=== PATIENT | female | born 1960 | race Caucasian/White ===

== ENCOUNTER 2018-12-15 14:06 | Emergency (ER) | payer BC, OTHER ==
[2018-12-15 14:30] VITALS: BP 157/88
--- NOTE | 2018-12-15 15:28 | UC ---
Abdominal Pain Female HPI - HPI Summary HPI Summary: Patient is a 58 y/o female Who presents to the urgent care with a chief complaint of abdominal pain. Patient also reports nausea and vomiting and fever. She reports that she has history of esophagitis however the pain is different from her previous esophagitis that time. Patient denies any diarrhea or constipation. Patient denies any chest pain shortness of breath or palpitations. - History of Current Complaint Chief Complaint: UCGI Stated Complaint: VOMITING Time Seen by Provider: 12/15/18 14:48 Hx Obtained From: Patient ?: No Onset/Duration: Sudden Onset Timing: Constant Severity Currently: Moderate Pain Intensity: 8 Location: Discrete At: RUQ, Discrete At: LUQ, Epigastric Radiates: No Character: Dull Aggravating Factor(s): Nothing Alleviating Factor(s): Nothing Associated Signs and Symptoms: Positive: Nausea - Risk Factors Ectopic Risk Factor: Negative Allergies/Adverse Reactions: Allergies Allergy/AdvReac Type Severity Reaction Status Date / Time environmental Allergy Wheezing Uncoded 12/15/18 14:26 OPIODS AdvReac Severe Vomiting Uncoded 12/15/18 14:26 Home Medications: Home Medications Famotidine [Pepcid] 40 mg PO BID 12/15/18 [History Confirmed 12/15/18] Gabapentin 300 mg PO QPM 12/15/18 [History Confirmed 12/15/18] Montelukast Sodium TAB* [Singulair 10 MG TAB*] 1 tab PO DAILY 12/15/18 [History Confirmed 12/15/18] Multivitamin [Multivitamins] 1 cap PO DAILY 12/15/18 [History Confirmed 12/15/18 ] Raloxifene HCl [Evista] 1 tab PO DAILY 12/15/18 [History Confirmed 12/15/18] Thyroid,Pork [Reading Thyroid] 30 mg PO BID 12/15/18 [History Confirmed 12/15/18] PMH/Surg Hx/FS Hx/Imm Hx Previously Healthy: Yes Other GI/ History: Esophagitis - Surgical History Surgical History: Yes Surgery Procedure, Year, and Place: NECK SUREGERY A CHILD(MUSCULAR-LIGAMENTS ) AGE 3 AND 5, TONSILECTOMY, UTERINE FIBROIDS, RT BREAST LUMPECTOMY WITH BIOPSY MARKERS, OOPHERECTOMY; Lt BREAST BIOPSY - W/ MARKERS PLACED. Lt KNEE - TOTAL KNEE REPLACEMENT - Family History Known Family History: Positive: None - Social History Alcohol Use: Occasionally Substance Use Type: None Smoking Status (MU): Never Smoked Tobacco Have You Smoked in the Last Year: No Review of Systems All Other Systems Reviewed And Are Negative: Yes Constitutional: Positive: Negative Skin: Positive: Negative Eyes: Positive: Negative Respiratory: Positive: Negative Cardiovascular: Positive: Negative Gastrointestinal: Positive: Abdominal Pain, Nausea Genitourinary: Positive: Negative Motor: Positive: Negative Neurovascular: Positive: Negative Musculoskeletal: Positive: Negative Neurological: Positive: Negative Psychological: Positive: Negative Is Patient Immunocompromised?: No Physical Exam - Summary Physical Exam Summary: VITAL SIGNS: Reviewed. GENERAL: Patient is a well developed and nourished female who is lying comfortable in the stretcher. Patient is not in any acute respiratory distress. HEAD AND FACE: Normocephalic and atraumatic. EYES: PERRLA, EOMI x 2, No injected conjunctiva. EARS: Hearing grossly intact. Ear canals and tympanic membranes are WNL. MOUTH: Oropharynx within normal limits. NECK: Supple, trachea is midline, no adenopathy, no JVD. CHEST: Symmetric, no tenderness at palpation LUNGS: Clear to auscultation bilaterally. No wheezing or crackles. CVS: RRR, S1 and S2 present, no murmurs or gallops appreciated. ABDOMEN: Soft, positive tenderness in the RUQ, epigastric and LUQ pain. No signs of distention. Positive bowel sounds. No rebound no guarding, and no masses palpated. No abdominal bruit or pulsations. EXTREMITIES: FROM in all major joints, no edema, no cyanosis or clubbing. NEURO: Alert and oriented x 3. No acute neurological deficits. Speech is normal. SKIN: Dry and warm Vital Signs: Initial Vital Signs Temp 99.9 F 12/15/18 14:22 Pulse 96 12/15/18 14:22 Resp 18 12/15/18 14:22 BP 157/88 12/15/18 14:22 Pulse Ox 97 12/15/18 14:22 Abd Pain Female Course/Dx - Course Course Of Treatment: During the physical exam the patient has a right upper quadrant, epigastric and left upper quadrant pain. I believe that the patient may need for work and I believe rehydration, antinausea medications and pain medications. Therefore I recommended for the patient to go to the ER for further workup and management. The patient understands and agrees. The patient requested something for pain and that a narcotic. She requested Toradol and something for nausea therefore she was given Zofran sublingual and she will call to the emergency department. Patient is hemodynamically stable alert and oriented 3. - Differential Dx/Diagnosis Provider Diagnosis: Upper abdominal pain Discharge - Sign-Out/Discharge Documenting (check all that apply): Patient Departure All imaging exams completed and their final reports reviewed: No - Discharge Plan Condition: Stable Disposition: HOME-RECOMMEND TO ED Patient Education Materials: Acute Abdominal Pain (ED) Referrals: Peggy Guerin MD [Primary Care Provider] - Additional Instructions: Patient recommended to go to the ED for further work up and management. - Billing Disposition and Condition Condition: STABLE Disposition: Home-Recommend to ED
[2018-12-15] MEDS ORDERED: Ketorolac INJ* 30 MG/ML 1 ML VIAL IM ONE (15:35)
[2018-12-15] MEDS ORDERED: Ondansetron ODT TAB* 4 MG SL PRN (15:36)
[2018-12-15] MEDS ORDERED: Ondansetron ODT TAB* 4 MG SL ONE (15:41)
--- NOTE | 2018-12-16 10:44 | UC ---
- Progress Note Progress Note: No x-rays were ordered Course/Dx - Diagnoses Provider Diagnoses: Upper abdominal pain Discharge - Sign-Out/Discharge Documenting (check all that apply): Patient Departure All imaging exams completed and their final reports reviewed: No Studies - Discharge Plan Condition: Stable Disposition: HOME-RECOMMEND TO ED Patient Education Materials: Acute Abdominal Pain (ED) Referrals: Peggy Guerin MD [Primary Care Provider] - Additional Instructions: Patient recommended to go to the ED for further work up and management. - Billing Disposition and Condition Condition: STABLE Disposition: Home-Recommend to ED
== END 2018-12-15 15:45 | disposition home health service (06) ==
LOC: UCEAST 14:06
DX: R10.11 Right upper quadrant pain (principal); R10.12 Left upper quadrant pain; R10.13 Epigastric pain; R11.2 Nausea with vomiting, unspecified; R50.9 Fever, unspecified; K20.9 Esophagitis, unspecified; Z96.652 Presence of left artificial knee joint; Z88.5 Allergy status to narcotic agent
CPT/HCPCS: 96372; 99212; A9270-GY; G0463; J1885

== ENCOUNTER 2018-12-15 16:09 | Inpatient (IN) | payer OTHER ==
[2018-12-15] MEDS ORDERED: NS 0.9% 1000 ML** 1,000 ML IV ONE ×2 (16:38→20:04)
[2018-12-15] MEDS ORDERED: Acetaminophen TAB* 325 MG PO ONE (16:39)
[2018-12-15 18:35] LABS: INR 1.15 (0.82-1.09)
[2018-12-15 18:39] LABS: Albumin 4.4 g/dL (3.2-5.2); Anion Gap 11 mmol/L (2-11); CO2 Carbon Dioxide 23 mmol/L (22-32); Calcium 9.2 mg/dL (8.6-10.3); Chloride 99 mmol/L (101-111); Potassium 3.6 mmol/L (3.5-5.0); Sodium 133 mmol/L (135-145)
[2018-12-15 18:40] LABS: Hematocrit 42 % (33-41); Hemoglobin 14.3 g/dL (12.0-16.0); Mean Corpuscular HGB Conc 34 g/dL (31-36); Mean Corpuscular Hemoglobin 31 pg (27-31); Mean Corpuscular Volume 92 fL (80-97); Red Blood Count 4.57 10^6 /uL (3.70-4.87); Red Cell Distribution Width 13 % (10.5-15); White Blood Count 19.4 10^3/uL (3.5-10.8)
[2018-12-15 18:45] LABS: ALT 17 U/L (7-52); AST 18 U/L (13-39); Albumin/Globulin Ratio 1.4 (1-3); Alkaline Phosphatase 93 U/L (34-104); Blood Urea Nitrogen 13 mg/dL (6-24); C Reactive Protein 208.06 mg/L (<8.01); EGFR African American 119.6 (>60); EGFR Non-African American 98.9 (>60); Globulin 3.1 g/dL (2-4); Glucose 146 mg/dL (70-100); Total Protein 7.5 g/dL (6.4-8.9)
[2018-12-15 19:42] LABS: ABS Basophils 0 10^3/ul (0-0.2); ABS Eosinophils 0 10^3/ul (0-0.6); ABS Lymphocytes 0.6 10^3/ul (1.0-4.8); ABS Monocytes 0.8 10^3/ul (0-0.8); ABS Neutrophils 17.9 10^3/ul (1.5-7.7); ABS Nucleated RBC 0 10^3/ul; Eosinophil % 0 %; Nucleated Red Blood Cells % 0; Platelet Count 277 10^3/uL (150-450)
--- NOTE | 2018-12-15 19:54 | ED ---
GI/ HPI - HPI Summary HPI Summary: 58-year-old female presents with fever since last night. She states she's felt nausea vomiting since midnight. She also been having epigastric pain. States pain greatest over right upper quadrant. She denies any chest pressures or shortness of breath. No cough. No sore throat. No one else is sick. Has history of hypothyroidism. Did not eat anything different. Denies any urinary symptoms. No muscle aches. has a history of esophagitis. only previous abd surgery is for fibroid removal. has history of gallstones. has not had been able to keep anything down. last thing ate was this moring applesauce which vomited. - History of Current Complaint Chief Complaint: EDNauseaVomitDiarrh Time Seen by Provider: 12/15/18 19:40 Stated Complaint: NAUSEA, VOMITING, FEVER PER PT Pain Intensity: 8 - Allergy/Home Medications Allergies/Adverse Reactions: Allergies Allergy/AdvReac Type Severity Reaction Status Date / Time environmental Allergy Wheezing Uncoded 12/15/18 16:17 OPIODS AdvReac Severe Vomiting Uncoded 12/15/18 16:17 PMH/Surg Hx/FS Hx/Imm Hx Endocrine/Hematology History: Reports: Hx Thyroid Disease Denies: Hx Diabetes Cardiovascular History: Denies: Hx Hypertension, Hx Pacemaker/ICD Respiratory History: Reports: Hx Asthma History: Denies: Hx Dialysis, Hx Renal Disease Musculoskeletal History: Denies: Hx Osteoporosis Sensory History: Denies: Hx Hearing Aid Psychiatric History: Denies: Hx Panic Disorder - Cancer History Cancer Type, Location and Year: RT BREAST 2006 Hx Chemotherapy: Yes Hx Radiation Therapy: Yes - Surgical History Surgery Procedure, Year, and Place: NECK SUREGERY A CHILD(MUSCULAR-LIGAMENTS ) AGE 3 AND 5, TONSILECTOMY, UTERINE FIBROIDS, RT BREAST LUMPECTOMY WITH BIOPSY MARKERS, OOPHERECTOMY; Lt BREAST BIOPSY - W/ MARKERS PLACED. Lt KNEE - TOTAL KNEE REPLACEMENT Infectious Disease History: No Infectious Disease History: Denies: Traveled Outside the [place] in Last 30 Days - Family History Known Family History: Positive: None - Social History Alcohol Use: Occasionally Substance Use Type: Reports: None Smoking Status (MU): Never Smoked Tobacco Have You Smoked in the Last Year: No Review of Systems Positive: Fever, Chills Negative: Chest Pain Negative: Shortness Of Breath, Cough Positive: Abdominal Pain, Vomiting, Nausea. Negative: Diarrhea All Other Systems Reviewed And Are Negative: Yes Physical Exam Triage Information Reviewed: Yes Vital Signs On Initial Exam: Initial Vitals Temp Pulse Resp BP Pulse Ox 101.1 F 98 14 158/97 96 12/15/18 16:17 12/15/18 16:17 12/15/18 16:17 12/15/18 16:17 12/15/18 16:17 Vital Signs Reviewed: Yes Appearance: Positive: Well-Appearing Skin: Positive: Warm, Dry Head/Face: Positive: Normal Head/Face Inspection Eyes: Positive: Normal, EOMI, JED, Conjunctiva Clear ENT: Positive: Normal ENT inspection, Pharynx normal, TMs normal Respiratory/Lung Sounds: Positive: Clear to Auscultation, Breath Sounds Present Cardiovascular: Positive: Normal, RRR Abdomen Description: Positive: Soft, Other: - tenderness greatest in RUQ Bowel Sounds: Positive: Present Musculoskeletal: Positive: Normal Neurological: Positive: Normal Psychiatric: Positive: Normal Diagnostics - Vital Signs Vital Signs Temp Pulse Resp BP Pulse Ox 12/15/18 18:36 99.7 F 104 16 136/84 96 12/15/18 16:17 101.1 F 98 14 158/97 96 - Laboratory Lab Results: Lab Results 12/15/18 12/15/18 12/15/18 Range/Units 18:16 18:16 18:16 WBC 19.4 H (3.5-10.8) 10^3/uL RBC 4.57 (3.70-4.87) 10^6 /uL Hgb 14.3 (12.0-16.0) g/dL Hct 42 H (33-41) % MCV 92 (80-97) fL MCH 31 (27-31) pg MCHC 34 (31-36) g/dL RDW 13 (10.5-15) % Plt Count 277 (150-450) 10^3/uL MPV Not Reportable Neut % (Auto) 92.5 % Lymph % (Auto) 3.0 % [place] % (Auto) 4.4 % Eos % (Auto) 0 % Baso % (Auto) 0.1 % Absolute Neuts (auto) 17.9 H (1.5-7.7) 10^3/ul Absolute Lymphs (auto) 0.6 L (1.0-4.8) 10^3/ul Absolute Monos (auto) 0.8 (0-0.8) 10^3/ul Absolute Eos (auto) 0 (0-0.6) 10^3/ul Absolute Basos (auto) 0 (0-0.2) 10^3/ul Absolute Nucleated RBC 0 10^3/ul Nucleated RBC % 0 INR (Anticoag Therapy) 1.15 H (0.82-1.09) Sodium 133 L (135-145) mmol/L Potassium 3.6 (3.5-5.0) mmol/L Chloride 99 L (101-111) mmol/L Carbon Dioxide 23 (22-32) mmol/L Anion Gap 11 (2-11) mmol/L BUN 13 (6-24) mg/dL Creatinine 0.62 (0.51-0.95) mg/dL Est GFR ( Amer) 119.6 (>60) Est GFR (Non-Af Amer) 98.9 (>60) BUN/Creatinine Ratio 21.0 H (8-20) Glucose 146 H (70-100) mg/dL Lactic Acid (0.5-2.0) mmol/L Calcium 9.2 (8.6-10.3) mg/dL Total Bilirubin 0.80 (0.2-1.0) mg/dL AST 18 (13-39) U/L ALT 17 (7-52) U/L Alkaline Phosphatase 93 (34-104) U/L Troponin I 0.00 (<0.04) ng/mL C-Reactive Protein 208.06 H (<8.01) mg/L Total Protein 7.5 (6.4-8.9) g/dL Albumin 4.4 (3.2-5.2) g/dL Globulin 3.1 (2-4) g/dL Albumin/Globulin Ratio 1.4 (1-3) Lipase < 10 L (11.0-82.0) U/L 12/15/18 Range/Units 18:16 WBC (3.5-10.8) 10^3/uL RBC (3.70-4.87) 10^6 /uL Hgb (12.0-16.0) g/dL Hct (33-41) % MCV (80-97) fL MCH (27-31) pg MCHC (31-36) g/dL RDW (10.5-15) % Plt Count (150-450) 10^3/uL MPV Neut % (Auto) % Lymph % (Auto) % [place] % (Auto) % Eos % (Auto) % Baso % (Auto) % Absolute Neuts (auto) (1.5-7.7) 10^3/ul Absolute Lymphs (auto) (1.0-4.8) 10^3/ul Absolute Monos (auto) (0-0.8) 10^3/ul Absolute Eos (auto) (0-0.6) 10^3/ul Absolute Basos (auto) (0-0.2) 10^3/ul Absolute Nucleated RBC 10^3/ul Nucleated RBC % INR (Anticoag Therapy) (0.82-1.09) Sodium (135-145) mmol/L Potassium (3.5-5.0) mmol/L Chloride (101-111) mmol/L Carbon Dioxide (22-32) mmol/L Anion Gap (2-11) mmol/L BUN (6-24) mg/dL Creatinine (0.51-0.95) mg/dL Est GFR ( Amer) (>60) Est GFR (Non-Af Amer) (>60) BUN/Creatinine Ratio (8-20) Glucose (70-100) mg/dL Lactic Acid 0.5 (0.5-2.0) mmol/L Calcium (8.6-10.3) mg/dL Total Bilirubin (0.2-1.0) mg/dL AST (13-39) U/L ALT (7-52) U/L Alkaline Phosphatase (34-104) U/L Troponin I (<0.04) ng/mL C-Reactive Protein (<8.01) mg/L Total Protein (6.4-8.9) g/dL Albumin (3.2-5.2) g/dL Globulin (2-4) g/dL Albumin/Globulin Ratio (1-3) Lipase (11.0-82.0) U/L Result Diagrams: 12/15/18 18:16 12/15/18 18:16 Lab Statement: Any lab studies that have been ordered have been reviewed, and results considered in the medical decision making process. - Ultrasound No standard instances Ultrasound Interpretation Completed By: Radiologist Summary of Ultrasound Findings: IMPRESSION: Cholelithiasis with ultrasound findings of cholecystitis. Re-Evaluation - Re-Evaluation First Eval Re-Evaluation Time: 20:30 Comment: pain manageable at this point GIGU Course/Dx - Course Course Of Treatment: 58-year-old female presents with fever since last night. She states she's felt nausea vomiting since midnight. She also been having epigastric pain. States pain greatest over right upper quadrant. She denies any chest pressures or shortness of breath. No cough. No sore throat. No one else is sick. Has history of hypothyroidism. Did not eat anything different. Denies any urinary symptoms. No muscle aches. On exam tenderness greatest in right upper quadrant. positive merida. wbc 19. CRP elevated. Sodium and chloride are low. gave fluids and is still tachycardiac. u/s shows cholecysitis. started on zosyn. discussed with dr aguiar who will admit. - Diagnoses Differential Diagnoses - Female: Cholecystitis, Gastroenteritis (Viral), Gastroenteritis (Bacterial), Urinary Tract Infection Provider Diagnoses: Cholecystitis Discharge - Sign-Out/Discharge Documenting (check all that apply): Patient Departure - Discharge Plan Condition: Stable Disposition: ADMITTED TO [facility] Referrals: Peggy Guerin MD [Primary Care Provider] - - Billing Disposition and Condition Condition: STABLE Disposition: Admitted to [facility]
[2018-12-15] MEDS ORDERED: Piperacillin/Tazobac ADVAN(*) 3.375 GM in NS 0.9% 100 ML* 100 ML IVPB ONE (20:25)
[2018-12-15] MEDS ORDERED: Ketorolac INJ* 30 MG/ML 1 ML VIAL IV PUSH ONE (21:40)
[2018-12-15 23:32] LABS: Influenza A Molecular NEGATIVE (Negative); Influenza B Molecular NEGATIVE (Negative)
[2018-12-15] MEDS ORDERED: HYDROmorphone INJ1* 1 MG/ML SYRINGE IV PRN (23:56)
[2018-12-15] MEDS ORDERED: Acetaminophen TAB* 325 MG PO PRN (23:59)
[2018-12-16] MEDS: ZOSYN 3.375 GM Q8H per EXTENDED INFUSION IVPB SCH ×6 (02:01→17:56)
[2018-12-16] MEDS: NS 0.9% 1000 ML** 1,000 ML IV SCH ×4 (02:03→19:43)
--- NOTE | 2018-12-16 02:16 | HP ---
CC: Dr. Peggy Guerin* HISTORY AND PHYSICAL: DATE OF ADMISSION: 12/16/18 CHIEF COMPLAINT: Right upper quadrant abdominal pain, nausea, vomiting, and fever. HISTORY OF PRESENT ILLNESS: Hi Monroe is a 58-year-old female with a history of hypothyroidism, breast cancer, osteoarthritis, osteopenia, asthma, gastritis, and a known history of gallstones, who presented to the [facility] Emergency Room on the evening of 12/15/18 with complaints of fever associated with right upper quadrant abdominal pain, back pain, nausea, and vomiting. Her symptoms started with fever at about 10 p.m. on 12/14/18. Symptoms started after a dinner of macaroni cheese and green beans. Her first notable symptom was fever and shaking chills. She began vomiting about midnight and had numerous episodes of emesis, vomiting her undigested food and subsequently "bile." She was unable to keep down any liquids. She tried over- the-counter liquid antacid without any relief. She developed right upper quadrant/epigastric abdominal pain and thought this was due to her repeated episodes of emesis. Ultimately, she presented to [facility] Emergency Room at 4 p.m. of 12/15/18 and was evaluated by the emergency room staff. She was noted to have white blood cell count of 19.4 and she had elevated glucose of 146. Her C-reactive protein was over 200. She had normal transaminases and bilirubin and a normal lactate. She was sent for gallbladder ultrasound, which revealed cholelithiasis with 5.2 mm gallbladder wall thickness , pericholecystic fluid present and sonographic De [place] sign. She had a diffusely echogenic liver, a right hepatic cyst and a common bile duct of 3.3 mm. Based on these findings, a surgical admission was requested. PAST MEDICAL HISTORY: Significant for the above-mentioned illnesses. PAST SURGICAL HISTORY: 1. 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 2. Tonsils and adenoids removed as a child. 3. Uterine myomectomy. 4. Right breast wide local excision in 2005 and sentinel lymph node dissection. 5. Laparoscopic bilateral oophorectomy in 2007. 6. Left total knee replacement in 2017. MEDICATIONS: 1. [place] Thyroid 30 mg p.o. b.i.d. 2. Evista 1 tab p.o. daily. 3. Pepcid 40 mg p.o. b.i.d. 4. Gabapentin 300 mg p.o. q.p.m. 5. Singulair 10 mg p.o. daily. 6. Multivitamin 1 p.o. daily. ALLERGIES: ENVIRONMENTAL and OPIOIDS cause nausea and vomiting, so she avoids them. FAMILY HISTORY: Mother is alive, has diabetes, osteoporosis. Father is in his 60s from heart disease and also had diabetes. Sister has autoimmune disease and gallstones. SOCIAL HISTORY: She is . 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 She denies any history of tobacco use. She drinks 2 glasses of wine per week. She denies other drug use. REVIEW OF SYSTEMS: A 14-point review of systems was completed and significant for the above-mentioned issues as well as a distant history of urinary tract infections. Otherwise, review of systems was negative. PHYSICAL EXAMINATION GENERAL: The patient is a well-developed, well-nourished, 58-year-old female, who appears in no acute distress. She is sitting up in bed, awake, alert, and smiling. VITAL SIGNS: She has temperature of 98.9, pulse of 115, respirations 18, O2 sat 94% on room air. Blood pressure is 122/75. HEENT EXAMINATION: She is normocephalic and atraumatic. Sclerae are anicteric. Mucous membranes are moist. There is no otorrhea or rhinorrhea. NECK: Symmetrical. No palpable lymphadenopathy or masses. Trachea is midline. LUNGS: Clear to auscultation without wheezes, rales, or rhonchi. HEART: Regular S1, S2. No murmurs appreciated. ABDOMEN: Healed scars at the umbilicus and in the Pfannenstiel site. Bowel sounds present. Nondistended. Tender right upper quadrant to light palpation with no palpable mass and no appreciated hepatosplenomegaly. EXTREMITIES: Warm without cyanosis, clubbing, or edema and 2+ bilateral palpable PT and DP pulses bilaterally. DIAGNOSTIC STUDIES/LABORATORY DATA: WBC 19.4, hemoglobin 14.3, hematocrit 42, platelets 277. No shift. Chemistry: Sodium 133, potassium 3.6, chloride 99, bicarbonate 23, BUN 13, creatinine 0.62, glucose 146, lactate 1.5. Total bilirubin 0.8, AST 18, ALT 17, alkaline phosphatase 93, albumin 4.4, lipase less than 10. INR is 1.15. Radiographic data as reported above. IMPRESSION: A 58-year-old female with acute calculus cholecystitis. She appears to be hemoconcentrated and dehydrated, which would account for her tachycardia. She does not appear toxic. PLAN/RECOMMENDATIONS: We will keep her NPO except medications. Aggressively rehydrate. IV Zosyn. Toradol p.r.n. for pain. Repeat CBC in the morning. She will be needing cholecystectomy on this admission. The above was discussed with the patient. She had all questions answered. She stated her understanding and agrees to the plan. [id number]/CPS #: [id number] MTDD
[2018-12-16] MEDS: Ketorolac INJ* 30 MG/ML 1 ML VIAL IV PRN ×4 (03:51→22:46)
[2018-12-16] MEDS: Ondansetron INJ* 2 MG/ML VIAL IV PRN ×4 (03:54→22:44)
[2018-12-16 05:35] LABS: ABS Basophils 0 10^3/ul (0-0.2); ABS Eosinophils 0 10^3/ul (0-0.6); ABS Lymphocytes 0.7 10^3/ul (1.0-4.8); ABS Monocytes 0.5 10^3/ul (0-0.8); ABS Neutrophils 13.5 10^3/ul (1.5-7.7); ABS Nucleated RBC 0 10^3/ul; Eosinophil % 0 %; Hematocrit 36 % (33-41); Lymphocyte % 4.7 %; Mean Corpuscular HGB Conc 34 g/dL (31-36); Mean Corpuscular Hemoglobin 31 pg (27-31); Mean Corpuscular Volume 91 fL (80-97); Mean Platelet Volume 7.3 fL (7.4-10.4); Nucleated Red Blood Cells % 0; Platelet Count 236 10^3/uL (150-450); Red Blood Count 3.93 10^6 /uL (3.70-4.87); Red Cell Distribution Width 13 % (10.5-15); White Blood Count 14.7 10^3/uL (3.5-10.8)
[2018-12-16 07:54] LABS: Calcium 8.2 mg/dL (8.6-10.3); Magnesium 2.3 mg/dL (1.9-2.7); Potassium 3.9 mmol/L (3.5-5.0)
[2018-12-16 07:59] LABS: EGFR African American 117.4 (>60); EGFR Non-African American 97.1 (>60)
--- NOTE | 2018-12-16 08:42 | PN ---
Progress Note - Progress Note Date of Service: 12/16/18 SOAP: Subjective: Slightly better. Nausea controlled. Pain persists. Denies CP, SOB. Objective: Vital Signs Temp 99.2 F 12/16/18 07:30 Pulse 112 12/16/18 07:30 Resp 16 12/16/18 07:30 BP 125/69 12/16/18 07:30 Pulse Ox 92 12/16/18 07:30 Gen: NAD; sitting up in bed, nontoxic Lungs: cta Heart: reg Abd: softly distended, less tender RUQ, no mass Intake & Output 12/15/18 12/16/18 12/16/18 18:59 06:59 18:59 Intake Total 2108 Output Total 1000 Balance 1108 Weight 170 lb 170 lb Intake: IV Fluids 1996 NS 897 IVPB 111 Zosyn 111 Oral 0 Output: Urine 1000 Other: # Bowel Movements 0 ECG: NSR; rate 85 Laboratory Results - last 24 hr 12/15/18 12/15/18 12/15/18 18:16 18:16 18:16 WBC 19.4 H RBC 4.57 Hgb 14.3 Hct 42 H MCV 92 MCH 31 MCHC 34 RDW 13 Plt Count 277 MPV Not Reportable Neut % (Auto) 92.5 Lymph % (Auto) 3.0 [place] % (Auto) 4.4 Eos % (Auto) 0 Baso % (Auto) 0.1 Absolute Neuts (auto) 17.9 H Absolute Lymphs (auto) 0.6 L Absolute Monos (auto) 0.8 Absolute Eos (auto) 0 Absolute Basos (auto) 0 Absolute Nucleated RBC 0 Nucleated RBC % 0 INR (Anticoag Therapy) 1.15 H Sodium 133 L Potassium 3.6 Chloride 99 L Carbon Dioxide 23 Anion Gap 11 BUN 13 Creatinine 0.62 Est GFR ( Amer) 119.6 Est GFR (Non-Af Amer) 98.9 BUN/Creatinine Ratio 21.0 H Glucose 146 H Lactic Acid Calcium 9.2 Magnesium Total Bilirubin 0.80 AST 18 ALT 17 Alkaline Phosphatase 93 Troponin I 0.00 C-Reactive Protein 208.06 H Total Protein 7.5 Albumin 4.4 Globulin 3.1 Albumin/Globulin Ratio 1.4 Lipase < 10 L Influenza A (Rapid) Influenza B (Rapid) 04/27/19 04/27/19 04/27/19 18:16 21:34 23:00 WBC RBC Hgb Hct MCV MCH MCHC RDW Plt Count MPV Neut % (Auto) Lymph % (Auto) [place] % (Auto) Eos % (Auto) Baso % (Auto) Absolute Neuts (auto) Absolute Lymphs (auto) Absolute Monos (auto) Absolute Eos (auto) Absolute Basos (auto) Absolute Nucleated RBC Nucleated RBC % INR (Anticoag Therapy) Sodium Potassium Chloride Carbon Dioxide Anion Gap BUN Creatinine Est GFR ( Amer) Est GFR (Non-Af Amer) BUN/Creatinine Ratio Glucose Lactic Acid 0.5 1.5 Calcium Magnesium Total Bilirubin AST ALT Alkaline Phosphatase Troponin I C-Reactive Protein Total Protein Albumin Globulin Albumin/Globulin Ratio Lipase Influenza A (Rapid) Negative Influenza B (Rapid) Negative 12/16/18 12/16/18 05:12 06:35 WBC 14.7 H RBC 3.93 Hgb 12.0 Hct 36 MCV 91 MCH 31 MCHC 34 RDW 13 Plt Count 236 MPV 7.3 L Neut % (Auto) 91.6 Lymph % (Auto) 4.7 [place] % (Auto) 3.4 Eos % (Auto) 0 Baso % (Auto) 0.3 Absolute Neuts (auto) 13.5 H Absolute Lymphs (auto) 0.7 L Absolute Monos (auto) 0.5 Absolute Eos (auto) 0 Absolute Basos (auto) 0 Absolute Nucleated RBC 0 Nucleated RBC % 0 INR (Anticoag Therapy) Sodium 139 Potassium 3.9 Chloride 108 Carbon Dioxide 24 Anion Gap 7 BUN 12 Creatinine 0.63 Est GFR ( Amer) 117.4 Est GFR (Non-Af Amer) 97.1 BUN/Creatinine Ratio 19.0 Glucose 145 H Lactic Acid Calcium 8.2 L Magnesium 2.3 Total Bilirubin AST ALT Alkaline Phosphatase Troponin I C-Reactive Protein Total Protein Albumin Globulin Albumin/Globulin Ratio Lipase Influenza A (Rapid) Influenza B (Rapid) Assessment: Acute cholecystitis. Stable. Dehydration improved. Tachycardia not evident on ECG. Plan: Cont IVF and abx. Clears. NPO p\ MN in anticipation of OR in AM.
[2018-12-17] MEDS: NS 0.9% 1000 ML** 1,000 ML IV SCH ×2 (02:26→15:56)
[2018-12-17] MEDS: ZOSYN 3.375 GM Q8H per EXTENDED INFUSION IVPB SCH ×6 (02:27→17:16)
[2018-12-17] MEDS: Ketorolac INJ* 30 MG/ML 1 ML VIAL IV PRN ×2 (05:07→12:51)
[2018-12-17] MEDS: Ondansetron INJ* 2 MG/ML VIAL IV PRN (05:09)
[2018-12-17] MEDS ORDERED: Bupivacaine 0.25% W/EPI* 10 ML SDV ONE (09:33)
[2018-12-17] MEDS ORDERED: Ondansetron INJ* 2 MG/ML VIAL ONE (09:41)
[2018-12-17] MEDS ORDERED: Lidocaine 2% PF * 5 ML VIAL ONE (09:41)
[2018-12-17] MEDS ORDERED: fentaNYL* 50 MCG/ML 2 ML VIAL (100 MCG VIAL) ONE ×2 (09:41→11:15)
[2018-12-17] MEDS ORDERED: Dexamethasone IV* 4 MG/ML 1 ML (4 MG) ONE (09:41)
[2018-12-17] MEDS ORDERED: Propofol* 10 MG/ML 20 ML BTL ONE (09:41)
[2018-12-17] MEDS ORDERED: Cisatracurium* 2 MG/ML MDV 5 ML ONE (09:42)
[2018-12-17] MEDS ORDERED: Midazolam* 1 MG/ML 5 ML VIAL (5 MG) ONE (09:42)
[2018-12-17] MEDS ORDERED: Scopolamine 1.5 mg* PATCH ONE (09:42)
[2018-12-17] MEDS ORDERED: Famotidine IV* 10 MG/ML 2 ML (20 mg) ONE (09:52)
[2018-12-17] MEDS ORDERED: Phenylephrine 40 MCG/ML SYRINGE ONE (10:43)
[2018-12-17] MEDS ORDERED: Scopolamine 1.5 mg* PATCH TRANSDERM ONE (11:10)
[2018-12-17] MEDS ORDERED: Famotidine IV* 10 MG/ML 2 ML (20 mg) IV ONE (11:10)
[2018-12-17] MEDS ORDERED: Buffered Lidocaine 1% SYRIN* 1 ML/SYRINGE INTRADERM ONE (11:10)
[2018-12-17] MEDS ORDERED: Naloxone* 0.4 MG/ML 1 ML VIAL IV PRN (11:11)
[2018-12-17] MEDS ORDERED: fentaNYL* 50 MCG/ML 2 ML VIAL (100 MCG VIAL) IV PRN (11:11)
[2018-12-17] MEDS ORDERED: DiMENhydriNATE IV* 50 MG/ML VIAL IV PUSH PRN (11:11)
[2018-12-17] MEDS ORDERED: Ondansetron INJ* 2 MG/ML VIAL IV PRN (11:11)
[2018-12-17] MEDS ORDERED: Neostigmine Methylsulfate* 1 MG/ML 10 ML VIAL (1 mg/ml) ONE (11:31)
[2018-12-17] MEDS ORDERED: Glycopyrrolate IV* 0.2 MG/ML 1 ML VIAL ONE (11:31)
--- NOTE | 2018-12-17 11:56 | OP ---
Operative Report - Blank - Operative Report Date of Operation: 12/17/18 Note: Brief Operative Note Preop Dx: acute cholecystitis Postop Dx: same, gangrenous Procedure: laparoscopic cholecystectomy Anesthesia: GET Surgeon: Mandy Case Reviewer: FRANCISCO Burns; BRIGETTE Simental Fluids: 2800 ml crystalloid EBL: 150 ml Specimen: gallbladder Drains: 1 AYAN Findings: dictated
[2018-12-17] MEDS ORDERED: Lactated Ringers 1000 ML Bag* 1,000 ML IV SCH (12:00)
[2018-12-17] MEDS ORDERED: Ketorolac INJ* 30 MG/ML 1 ML VIAL ONE (12:50)
[2018-12-17] MEDS ORDERED: HYDROcodone/ACETAMIN 5-325 MG* 1 TAB PO PRN ×2 (13:56→13:58)
[2018-12-17] MEDS: Montelukast Sodium TAB* 10 MG PO SCH (17:16)
--- NOTE | 2018-12-17 18:09 | OP ---
CC: Peggy Guerin MD, [facility] * DATE OF OPERATION: 12/17/18 - ROOM #341 DATE OF : 60 SURGEON: Krishna Galvan MD FLOOR SERVICE WORKER SPRING: FRANCISCO Berg ANESTHESIOLOGIST: Boaz Ryan MD ANESTHESIA: General endotracheal. PRE-OP DIAGNOSIS: Acute cholecystitis. POST-OP DIAGNOSIS: Gangrenous cholecystitis. OPERATIVE PROCEDURE: Laparoscopic cholecystectomy. ESTIMATED BLOOD LOSS: 150 mL. IV FLUIDS: Lactated Ringer's. DRAINS: 7-mm Booker-Washington. COMPLICATIONS: None. COUNTS: The instrument, needle, and sponge counts were correct. DESCRIPTION OF PROCEDURE: The patient was brought to the operating room and placed on the table supine. Sequential compression devices were placed on both lower extremities. General anesthesia was administered. She was positioned and padded appropriately and she received appropriate intravenous antibiotics. She was prepped and draped in usual sterile fashion and a time-out was performed. Local anesthetic was infiltrated into the skin and soft tissue prior to making each incision. Entry into the abdomen was through a transumbilical vertical incision using an open technique. After accessing the peritoneal cavity, a 12- mm trocar was placed and carbon dioxide was insufflated to a pressure of 15 mmHg. Under direct visualization, 5-mm trocars were placed in the subxiphoid position and two in the right upper quadrant. There was fibrinous exudate seen overlying omentum in the right upper quadrant as well as the right lobe of the liver. Upon positioning the patient in reverse Trendelenburg with slight right side up, the gallbladder came into view and there were noted to be patchy gangrenous changes on the gallbladder. The gallbladder was grasped at the fundus and retracted cephalad. The dissection proceeded with entering the peritoneum investing the gallbladder and this was dissected quite easily using a blunt dissector given the amount of edema and the gangrenous changes in the gallbladder wall. Blunt dissection proceeded to free the gallbladder from attachments to the liver staying in an avascular plane. At one point, cholecystotomy was created inadvertently and suction was used to control bile spillage as well as to aspirate multiple small stones that were identified. After the completion of the dissection of the gallbladder from the gallbladder bed, the cystic artery and cystic duct were identified. The cystic artery was clipped multiple times and then divided. Because of the size of the cystic duct and gangrenous changes, it was decided not to clip this, but instead to divide the infundibulum. The gallbladder was placed into the endoscopic retrieval bag. The gallbladder was retrieved through the umbilical site. During this maneuver, the specimen bag did rupture and necessitated removing the gallbladder separately from that wound. Any spilled stones were removed. The port was repositioned in the umbilical site and pneumoperitoneum was achieved. Blood and clot were aspirated from the right upper quadrant. There appeared to be some oozing from the edge of the infundibulum that had been divided. A 0 Vicryl Endoloop was used to ligate the cystic duct at this time and this did achieve excellent hemostasis. Copious lavage of the abdomen was performed with about 7 L of saline until clear. The irrigation was performed in all 4 quadrants of the abdomen. A 7-mm Booker-Washington drain was placed into the abdominal cavity and withdrawn through the most lateral 5-mm trocar site and the drain was positioned into Juarez's pouch and in the area of the gallbladder fossa. This was sutured in position with a 3-0 Prolene suture and connected to the suction bulb. The remaining ports were removed under direct visualization and carbon dioxide was released. The umbilical site was closed with a 0 Vicryl in [id number] fashion to approximate the fascia and the skin was loosely closed with interrupted 4-0 Monocryl at the site. The skin to the remaining incisions was closed with 4-0 Monocryl. Steri-Strips were applied at the 2 remaining sites. The umbilical site was dressed with 4x4 gauze as was the drain site. The patient was extubated uneventfully and she was transferred to the recovery room in a stable condition. [id number]/[facility] #: [id number] [facility] SURGERYJim
[2018-12-17] MEDS: Famotidine TAB* 20 MG PO SCH (22:53)
[2018-12-17] MEDS: Thyroid TAB* 30 MG PO SCH (22:53)
[2018-12-18] MEDS: ZOSYN 3.375 GM Q8H per EXTENDED INFUSION IVPB SCH ×6 (01:48→17:55)
[2018-12-18] MEDS: Thyroid TAB* 30 MG PO SCH ×2 (09:39→20:08)
[2018-12-18] MEDS: Famotidine TAB* 20 MG PO SCH ×2 (09:39→20:08)
--- NOTE | 2018-12-18 09:42 | PN ---
Progress Note - Progress Note Date of Service: 12/18/18 SOAP: Subjective: Feeling better. Not taking pain meds. Objective: Vital Signs Temp 98.7 F 12/18/18 07:48 Pulse 98 12/18/18 07:48 Resp 17 12/18/18 07:48 BP 124/71 12/18/18 07:48 Pulse Ox 93 12/18/18 07:48 Gen: NAD Abd: ND, incisions c/d/i; soft and min tender; AYAN bilious drainage. Intake & Output 12/17/18 12/18/18 12/18/18 18:59 06:59 18:59 Intake Total 3100 680 240 Output Total 40 270 Balance 3060 410 240 Weight 170 lb Intake: IV Fluids 3000 LR 2650 NS 150 NS 100ML, Zosyn 3.375G 100 Normal Saline 0.9% 100 Oral 100 680 240 Output: AYAN #1 40 70 Urine 0 200 Other: Estimated Void Medium # Bowel Movements 0 Estimated Blood Loss MINIMAL Comment # Voids 1 Assessment: POD#1 s/p lap kiana for gangrenous cholecystitis. Appears to have bile leak, controlled through AYAN. Plan: Will check labs. HIDA. Cont antibiotics for now.
[2018-12-18 10:53] LABS: ABS Basophils 0 10^3/ul (0-0.2); ABS Eosinophils 0 10^3/ul (0-0.6); ABS Lymphocytes 0.4 10^3/ul (1.0-4.8); ABS Monocytes 0.5 10^3/ul (0-0.8); ABS Nucleated RBC 0 10^3/ul; Eosinophil % 0.1 %; Hematocrit 30 % (33-41); Lymphocyte % 3.7 %; Mean Corpuscular HGB Conc 34 g/dL (31-36); Mean Corpuscular Hemoglobin 31 pg (27-31); Mean Corpuscular Volume 92 fL (80-97); Mean Platelet Volume 7.1 fL (7.4-10.4); Nucleated Red Blood Cells % 0; Platelet Count 263 10^3/uL (150-450); Red Blood Count 3.23 10^6 /uL (3.70-4.87); Red Cell Distribution Width 13 % (10.5-15)
[2018-12-18 10:54] LABS: Albumin 2.9 g/dL (3.2-5.2); Indirect Bilirubin 0.2 mg/dL (0.3-1.0); Total Bilirubin 0.4 mg/dL (0.2-1.0); Total Protein 5.9 g/dL (6.4-8.9)
[2018-12-18] MEDS: Montelukast Sodium TAB* 10 MG PO SCH (17:55)
[2018-12-18] MEDS: Ketorolac INJ* 30 MG/ML 1 ML VIAL IV PRN (23:17)
[2018-12-19] MEDS: ZOSYN 3.375 GM Q8H per EXTENDED INFUSION IVPB SCH ×4 (02:10→10:01)
[2018-12-19 09:25] VITALS: BP 111/69
[2018-12-19] MEDS: Famotidine TAB* 20 MG PO SCH (09:59)
[2018-12-19] MEDS: Thyroid TAB* 30 MG PO SCH (09:59)
[2018-12-20] MEDS ORDERED: Scopolamine PATCH Remove* 1 NOTE MISC PATCH OFF ONE (10:00)
== END 2018-12-19 12:40 | disposition home or self-care (01) | DRG 263 ==
LOC: ED 16:09 → SSU 22:46
PROVIDERS: ADMIT Surgery; ATTEND Surgery
PROC: 0FT44ZZ Resection of Gallbladder, Percutaneous Endoscopic Approach (ICD-10-PCS; principal; 2018-12-17 09:30)
DX: K80.00 Calculus of gallbladder with acute cholecystitis without obstruction (principal); K91.89 Other postprocedural complications and disorders of digestive system; K82.A1 Gangrene of gallbladder in cholecystitis; E86.0 Dehydration; E03.9 Hypothyroidism, unspecified; K29.70 Gastritis, unspecified, without bleeding; M19.90 Unspecified osteoarthritis, unspecified site; M85.80 Other specified disorders of bone density and structure, unspecified site; J45.909 Unspecified asthma, uncomplicated; Z91.048 Other nonmedicinal substance allergy status; K76.89 Other specified diseases of liver; Z96.652 Presence of left artificial knee joint; Z85.3 Personal history of malignant neoplasm of breast; Z88.5 Allergy status to narcotic agent; Z79.899 Other long term (current) drug therapy; Z83.3 Family history of diabetes mellitus; R00.0 Tachycardia, unspecified; Z82.49 Family history of ischemic heart disease and other diseases of the circulatory system; Z84.89 Family history of other specified conditions
CPT/HCPCS: 36415; 76705; 78226; 80048; 80053; 80076; 83605; 83690; 83735; 84484; 85025; 85610; 86140; 87040; 88304; 93005; 99285; A9270-GY; A9537; J1100; J1885; J2250; J2405; J2543; J2704; J2710; J3010

== ENCOUNTER 2018-12-29 07:57 | Emergency (ER) | payer OTHER ==
--- NOTE | 2018-12-29 08:06 | ED ---
Abdominal Pain/Female - HPI Summary HPI Summary: Pt. is a 58 y.o female who presents to the ER for fever and fatigue s/p cholecystectomy 12/[address] Galvan. Complications of bile leak and has biliary drain. Pt. states yesterday she started feeling fatigue and fever. Pt. notes fever at home of 102F. 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 Pt. denies abd. pain. She notes diarrhea. No associated sxs of cough, N/V, urinary sxs, CP, SOB, calf swelling. Past hx of breat ca, hypothyroid, osteoporosis. Symptoms are moderate in severity. Pt. notes biliary drain is putting out about 2 tsp per day. - History of Current Complaint Chief Complaint: EDFever Stated Complaint: FEVER/DIARRHEA/FATIGUE (SURG ABOUT 2 WEEKS AGO) PT Time Seen by Provider: 12/29/18 08:06 Hx Obtained From: Patient Pain Intensity: 0 Allergies/Adverse Reactions: Allergies Allergy/AdvReac Type Severity Reaction Status Date / Time Opioids - Morphine Analogues AdvReac Vomiting Verified 12/29/18 08:02 environmental Allergy Wheezing Uncoded 12/29/18 08:02 PMH/Surg Hx/FS Hx/Imm Hx Previously Healthy: Yes Endocrine/Hematology History: Reports: Hx Thyroid Disease - hypothyroid Denies: Hx Diabetes Cardiovascular History: Denies: Hx Hypertension, Hx Pacemaker/ICD Respiratory History: Reports: Hx Asthma GI History: Reports: Other GI Disorders - Esophagitis History: Denies: Hx Dialysis, Hx Renal Disease Musculoskeletal History: Reports: Hx Arthritis - osteoarthitis knees bilat Denies: Hx Osteoporosis Sensory History: Reports: Hx Contacts or Glasses Denies: Hx Hearing Aid Opthamlomology History: Reports: Hx Contacts or Glasses Neurological History: Denies: Other Neuro Impairments/Disorders - 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 ADENOIDECTOMY & TONSILECTOMY,. UTERINE FIBROIDS REMOVAL,. RIGHT BREAST LUMPECTOMY WITH BIOPSY MARKERS AND LYMPH NODE DISSECTION, LEFT BREAST BIOPSY - W/ MARKERS PLACED Chemo tx. L TKR Hx Anesthesia Reactions: Yes - nausea/vomiting , per pt r/t opiods Infectious Disease History: No Infectious Disease History: Denies: Traveled Outside the [place] in Last 30 Days - Family History Known Family History: Positive: None, Non-Contributory - Social History Occupation: Employed Full-time Lives: With Family Alcohol Use: None Alcohol Amount: wine after dinner occasionally Substance Use Type: Reports: None Smoking Status (MU): Never Smoked Tobacco Have You Smoked in the Last Year: No Review of Systems Positive: Fever, Chills Eyes: Negative ENT: Negative Cardiovascular: Negative Negative: Palpitations, Chest Pain Respiratory: Negative Negative: Shortness Of Breath, Cough Positive: Diarrhea. Negative: Abdominal Pain, Vomiting, Nausea Genitourinary: Negative Negative: dysuria, discharge, frequency, flank pain Musculoskeletal: Negative Skin: Negative Neurological: Negative All Other Systems Reviewed And Are Negative: Yes Physical Exam Triage Information Reviewed: Yes Vital Signs On Initial Exam: Initial Vitals Temp Pulse Resp BP Pulse Ox 99.1 F 112 16 90/61 95 12/29/18 08:02 12/29/18 08:02 12/29/18 08:02 12/29/18 08:02 12/29/18 08:02 Vital Signs Reviewed: Yes Appearance: Positive: Well-Appearing - Pt. sitting up in bed in NAD. Skin: Positive: Warm, Dry Head/Face: Positive: Normal Head/Face Inspection Eyes: Positive: Normal, EOMI, JED Neck: Positive: Supple Respiratory/Lung Sounds: Positive: Clear to Auscultation, Breath Sounds Present. Negative: Rales, Rhonchi, Wheezes Cardiovascular: Positive: Normal, Tachycardia Abdomen Description: Positive: Other: - Obese. Abd is soft and nontender throughout. Biliary drain noted to RUQ. Drain site without erythema, drainage, or tenderness. Small amount of bright yellowish fluid in bulb. Neurological: Positive: Normal, CN Intact II-III Psychiatric: Positive: Affect/Mood Appropriate Diagnostics - Vital Signs Vital Signs Temp Pulse Resp BP Pulse Ox 12/29/18 08:02 99.1 F 112 16 90/61 95 - Laboratory Result Diagrams: 12/29/18 08:22 12/29/18 08:22 Lab Statement: Any lab studies that have been ordered have been reviewed, and results considered in the medical decision making process. Abdominal Pain Fem Course/Dx - Course Course Of Treatment: Pt. presenting for fever and fatigue s/p kiana 12/15. Pt. denies abd. pain and has no pain on exam. Dr. Galvan called in report on pt. and would like a CT abd./pelvis to r/o bililary collection. Labs and cultures ordered. Pt. started on IV fluids. CBC shows leukocytosis of 20.6 with left shift. CMP shows elevated glucose, normal bilirubin, mild elevation in liver enzymes and lipase. Lactic acid 3. Pt. given a dose of Zosyn and another L of fluids. CXR and U/A negative. Ct abd./pelvis per radiology: IMPRESSION: 1. THE PATIENT IS STATUS POST CHOLECYSTECTOMY THERE IS A FLUID COLLECTION IN THE. GALLBLADDER FOSSA. DIFFERENTIAL DIAGNOSIS WOULD INCLUDE BILOMA, ABSCESS OR LESS LIKELY. HEMATOMA. 2. DRAINAGE CATHETER IN THE RIGHT UPPER QUADRANT NOTED. 1011: Case discussed with oncall surgery, Dr. Prieto. He will evaluate pt. in ED. Dr. Prieto examined pt. and feels she will need percutaneous drain placement for abscess drainage. We do not have IR this weekend. Pt. will need to be transferred for high level of care. Dr. Prieto spoke with surgeon, Dr. Cope, at [facility] and Dr. Cope will accept pt. as a direct admission to the floor. purchasing clerk will arrange transport. - Diagnoses Differential Diagnosis: Positive: Gall Bladder Disease, Hepatitis, Pneumonia, Urinary Tract Infection Provider Diagnoses: Postoperative bile leak, Abdominal abscess Discharge - Sign-Out/Discharge Documenting (check all that apply): Patient Departure Patient Received Moderate/Deep Sedation with Procedure: No - Discharge Plan Condition: Stable Disposition: TRANS HIGHER LVL OF CARE FAC Referrals: Peggy Guerin MD [Primary Care Provider] - - Billing Disposition and Condition Condition: STABLE Disposition: Trans Higher Lvl of Care Fac
[2018-12-29] MEDS ORDERED: NS 0.9% 1000 ML** 1,000 ML IV ONE ×2 (08:09→09:17)
--- OUTSIDE RECORDS SUMMARY | 2018-12-29 08:31 | XMS REPORT | Continuity of Care Document ---
:1960 External Reference #:[id number] Author Name Crissy Lind Care Team Providers Name Role Phone Peggy Guerin MD Primary Care Physician Unavailable Payers Date Identification Numbers Payment Provider Subscriber Policy Number: [id number] [facility] Health Ins Ppo/Epo Ko Dl PayID: [id number] [address] [place] [address] Effective: 2016 Policy Number: [id number] [employer] Ko [place] Expires: 2018 PayID: [id number] [address] [address] [place] [address] Advance Directives Description No Information Available Problems Description No Information Family History Description No Information Available Social History Type Date Description Comments Sex Unknown Marital Status Occupation Currently Working [employer] ETOH Use Consumes 2 glasses of wine per week Tobacco Use Start: Unknown Patient has never smoked Smoking Status Reviewed: 12/28/18 Patient has never smoked Allergies, Adverse Reactions, Alerts Active Allergies Reaction Severity Comments Date Opioids vomiting 05/11/2017 Medications Active Medications SIG Qnty Indications Ordering Provider Date Fluticasone Propionate 2 sprays each Unknown nostril daily as 50mcg/Act Suspension needed Gabapentin 1 by mouth once a Unknown 300mg Capsules day Montelukast Sodium 1 by mouth every Unknown 10mg day Tablets Multiple Vitamin 1 by mouth every Unknown Tablets day Naproxen 1 tablet by mouth Unknown 250mg Tablets as needed Evista 1 by mouth every Unknown 60mg Tablets day [place] Thyroid 1 by mouth twice Unknown 60mg a day Tablets Famotidine Take 1 Tablet By Unknown 40mg Tablets Mouth Twice A Day Qvar Redihaler 2 puffs by mouth Unknown 40mcg/Act twice a day Aerosol History Medications Fish Oil 1 by mouth every day Unknown - Unknown 1000mg Capsules Immunizations Description No Information Available Vital Signs Date Vital Result Comment 12/28/2018 8:52am Heart Rate 76 /min BP Systolic 120 mmHg BP Diastolic 70 mmHg Respiratory Rate 16 /min Body Temperature 99.0 F 12/24/2018 11:43am Height 65 inches 5'5" Weight 170.00 lb Heart Rate 62 /min BP Systolic 136 mmHg BP Diastolic 84 mmHg Respiratory Rate 16 /min Body Temperature 98.0 F BMI (Body Mass Index) 28.3 kg/m2 05/11/2017 3:06pm Height 65 inches 5'5" Weight 171.00 lb Heart Rate 104 /min BP Systolic Sitting 118 mmHg BP Diastolic Sitting 64 mmHg Respiratory Rate 14 /min Body Temperature 98.4 F BMI (Body Mass Index) 28.5 kg/m2 Results Test Date Facility Test Result H/L Range Note Laboratory test 12/17/2018 [facility] Surgical SEE RESULT [address] Pathology BELOW [place] [id number] [phone] 1 SEE RESULT BELOW Name: APOORVA STOKES : [address]: Krishna Galvan MD Acct: [id number] Unit: [id number] AGE: 58 Location: [place] [id number] Re12/15/18 SEX: F Status: ADM IN SPEC: [id number] ARVIND: 12/17/18- [facility] DR: Krishna Galvan MD REQ: [id number] RECD: 12/17/18-1254 STATUS: SOUT _ ORDERED: LEVEL 3 FINAL DIAGNOSIS Gallbladder, cholecystectomy: -- Acute suppurative cholecystitis with chronic cholecystitis and cholelithiasis. PRE-OPERATIVE DIAGNOSIS Cholecystitis GROSS DESCRIPTION The specimen is received in formalin labeled, Gallbladder, and consists of a 3.0 x 5.0 by up to 1.5 cm previously disrupted gallbladder. The serosa is mottled to purpuric white-pink with focal yellow-green softened areas. The wall thickness ranges from less than 0.1-0.4 cm. The mucosa is smooth to waxy focally trabeculated dark green. Within the lumen is a 4.0 x 4.5 x 0.8 cm aggregate of yellow-green to black friable choleliths. Loan Assistant sections are submitted in one cassette. Signed by and Reported on: Jersey Tillman MD 1706 END OF REPORT DEPARTMENT OF PATHOLOGY, [address] [place] [address] Jersey Tillman M.D. Director [facility] # [id number] Procedures Date Code Description Status 12/17/2018 67160 Laparoscopy Cholecystectomy Completed 12/17/2018 44828 Laparoscopy Cholecystectomy Completed Encounters Type Date Location Provider Dx Diagnosis Office Visit 12/16/2018 Surgical Krishna Galvan, K80.00 [facility] gallbladder w acute cholecyst w/o obstruction [facility] [place] R53.83 Other fatigue 3:00p Infectious [facility] R76.8 Other specified abnormal immunological findings in serum Plan of Treatment 12/28/2018 - Krishna Galvan MD, [id number] Gangrene of gallbladder in cholecystitisReferral:Domenic Hensley MD, Gastroenterology
--- OUTSIDE RECORDS SUMMARY | 2018-12-29 08:32 | XMS REPORT | Continuity of Care Document ---
:1960 External Reference #:[id number] Author Name Crissy Lind Care Team Providers Name Role Phone Peggy Guerin MD Primary Care Physician Unavailable Payers Date Identification Numbers Payment Provider Subscriber Policy Number: [id number] [facility] Health Ins Ppo/Epo Ko Sullivan PayID: [id number] [address] [place] [address] Effective: 2016 Policy Number: [id number] BS Facets Ko Dl Expires: 2018 PayID: [id number] [address] [address] [place] [address] Advance Directives Description No Information Available Problems Description No Information Family History Description No Information Available Social History Type Date Description Comments Sex Unknown Marital Status Occupation Currently Working [employer] ETOH Use Consumes 2 glasses of wine per week Tobacco Use Start: Unknown Patient has never smoked Smoking Status Reviewed: 12/24/18 Patient has never smoked Allergies, Adverse Reactions, [...] by mouth every Unknown 60mg Tablets day Dameron Thyroid 1 by mouth twice Unknown 60mg a day Tablets Famotidine Take 1 Tablet By Unknown 40mg Tablets Mouth Twice A Day Qvar Redihaler 2 puffs by mouth Unknown 40mcg/Act twice a day Aerosol History Medications Fish Oil 1 by mouth every day Unknown - Unknown 1000mg Capsules Immunizations Description No Information Available Vital Signs Date Vital Result Comment 12/24/2018 11:43am Height 65 inches 5'5" Weight [...] Result H/L Range Note Laboratory test 12/17/2018 [facility] Surgical SEE RESULT [address] [place] [address] [phone] SEE RESULT BELOW Name: APOORVA STOKES : [address]: Krishna Galvan MD Acct: [id number] Unit: [id number] AGE: 58 Location: [facility] [id number] Re12/15/18 SEX: F Status: ADM IN SPEC: [id number] ARVIND: 12/17/18- SUBM DR: Krishna Galvan MD REQ: [id number] RECD: 12/17/18-1254 STATUS: SOUT _ ORDERED: LEVEL [...] aggregate of yellow-green to black friable choleliths. Implementation Specialist Payroll sections are submitted in one cassette. Signed by and Reported on: Jersey Tillman MD 1703 END OF REPORT DEPARTMENT OF PATHOLOGY, [address] [place] [address] Jersey Tillman M.D. Director [facility] # [id number] Procedures Date Code Description Status 12/17/2018 98781 Laparoscopy Cholecystectomy Completed 12/17/2018 57655 Laparoscopy Cholecystectomy Completed Encounters Type Date Location Provider Dx Diagnosis Office Visit 12/16/2018 Surgical Krishna Galvan, K80.00 [facility] 7:00[facility] , FACS gallbladder w acute cholecyst w/o obstruction Office Visit 05/11/2017 [facility] Rene [place] R53.83 Other fatigue 3:00p Infectious [facility] R76.8 Other specified abnormal immunological findings in serum Plan of Treatment Future Appointment(s):12/28/2018 9:00 am - Krishna Galvan MD, FACS at [facility]12/24/2018 - Krishna Galvan MD, [id number] Gangrene of gallbladder in cholecystitisFollow up:Monday
[2018-12-29 08:36] LABS: ABS Basophils 0.1 10^3/ul (0-0.2); ABS Neutrophils 18.6 10^3/ul (1.5-7.7); Eosinophil % 0.1 %; Hematocrit 31 % (35-47); Hemoglobin 10.2 g/dL (12.0-16.0); Lymphocyte % 4.7 %; Mean Corpuscular HGB Conc 33 g/dL (31-36); Mean Corpuscular Hemoglobin 30 pg (27-31); Mean Corpuscular Volume 91 fL (80-97); Mean Platelet Volume 6.7 fL (7.4-10.4); Platelet Count 541 10^3/uL (150-450); Red Blood Count 3.38 10^6 /uL (3.70-4.87); Red Cell Distribution Width 13 % (10.5-15); White Blood Count 20.6 10^3/uL (3.5-10.8)
[2018-12-29 09:01] LABS: Albumin 3.4 g/dL (3.2-5.2); Albumin/Globulin Ratio 1.1 (1-3); BUN/Creatinine Ratio 14.8 (8-20); C Reactive Protein 187.4 mg/L (<8.01); Calcium 8.5 mg/dL (8.6-10.3); EGFR African American 79.9 (>60); Globulin 3.2 g/dL (2-4); Potassium 3.5 mmol/L (3.5-5.0); Total Bilirubin 0.8 mg/dL (0.2-1.0); Total Protein 6.6 g/dL (6.4-8.9)
[2018-12-29] MEDS ORDERED: Iohexol 300* (CONTRAST) 10 ML SDV IV ONE (09:14)
[2018-12-29] MEDS ORDERED: ED Piperacillin/Tazobac 3.375 3.375 GM/100 ML PREMIX.SET IVPB ONE (09:17)
[2018-12-29] MEDS ORDERED: Piperacillin/Tazobac (*) 3.375 GM BAG ONE (09:20)
[2018-12-29 09:27] LABS: Urine Appearance Clear; Urine Bilirubin Negative (Negative); Urine Blood Negative (Negative); Urine Color Yellow; Urine Glucose Negative (Negative); Urine Ketones Negative (Negative); Urine Nitrite Negative (Negative); Urine Protein Negative (Negative); Urine Specific Gravity 1.004 (1.010-1.030); Urine Urobilinogen Negative (Negative)
[2018-12-29 12:41] VITALS: BP 108/77
--- NOTE | 2018-12-29 14:29 | CONS ---
CC: [facility]; Dr. Peggy Guerin EMERGENCY ROOM CONSULTATION: DATE OF CONSULT: 12/29/18 PRIMARY CARE PROVIDER: Dr. Peggy Guerin at [facility]. REFERRING PROVIDER: Dr. Cosmo Orozco, Emergency Room. REASON FOR CONSULTATION: Fever and abdominal pain, status post cholecystectomy. HISTORY OF PRESENT ILLNESS: Ms. Hi Monroe is a very pleasant 58-year-old woman who lives here [facility], who was admitted to the hospital on 12/16/18 after she presented with complaints of fever a nd right upper quadrant abdominal pain 24 hours prior to presentation. She has some fevers and shaki ng chills and subsequent vomiting. She was noted to have a white blood cell count of 19,000 and C-re active protein of over 200. Liver transaminase and bilirubin were normal. She underwent a gallbladd er ultrasound, which showed cholelithiasis and a slightly thickened gallbladder wall with pericholecy stic fluid, all consistent with acute calculous cholecystitis. She also had a right hepatic cyst not ed, the common bile duct at that time was unremarkable. She underwent a laparoscopic cholecystectomy with Dr. Krishna Galvan on 12/17/18. Findings were that of gangrenous cholecystitis. The cystic duct was noted to be somewhat dilated at dissection and the cy stic duct was ligated with a Vicryl Endoloop and a Booker-Washington drain was placed. Postoperatively, she was noted to have bile draining in the Booker-Washington drain. She underwent a hepa tobiliary scan, which confirmed bile leakage into the drain but no intraperitoneal leak or fluid marie ection. There was no obstruction noted as well. Postoperatively, she did well and was discharged to home on oral antibiotics. She just completed her antibiotics on of this week. She saw Dr. Galvan on Monday and was d oing quite well. At that time, however, there was still some bilious drainage in the Booker-Washington d rain and the GI consultation was arranged for consideration of an ERCP with stenting. Last night, she developed some fatigue and weakness and overnight had a fever of 102. She was instru cted to the emergency room. She had no jaundice. She had no fever, shakes, or chills. She did complain of no abdominal discomfo rt, but she was somewhat anorexic. In the emergency room, she was noted to have a temperature of 99.1. Her heart rate was up into the 9 0s. Blood pressure was initially 90/61 but with fluid, improved to 108/72. Laboratory workup included a white blood cell count of 20,600. She had a platelet count 541, which i s elevated. Hemoglobin of 10.2, she had 18% absolute neutrophils. Electrolytes showed anion gap of 12 with a carbon dioxide of 21. Blood sugar was 256 and she had a lactic acid of 3. AST and ALT were 55 and 74 with an alkaline phosphatase of 235. Bilirubin was normal. C-reactive protein of 187 and lipase was 87. She underwent a chest x-ray, it was unremarkable. She underwent a CT scan of the abdomen and pelvis. I did review this with the radiologist here. Thi s was done with intravenous and without oral contrast. This shows a fluid collection in the gallblad gagan fossa with differential including biloma or abscess and less likely hematoma. Drainage catheter was in the right upper quadrant but not within the fluid collection. There was no free fluid or extr aluminal air. The hepatic cyst was noted. Surgical consultation was obtained. PAST MEDICAL HISTORY: 1. Breast cancer. 2. Environmental allergies. 3. Hypothyroidism. PAST SURGICAL HISTORY: 1. Neck surgery. 2. Tonsillectomy. 3. Uterine myomectomy. 4. Right breast wide local excision in 2005. 5. Laparoscopic bilateral oophorectomy in 2007. 6. Left total knee replacement. MEDICATIONS: Include: 1. Synthroid. 2. Evista. 3. Multivitamin. 4. Singulair. 5. Pepcid. ALLERGIES: Environmental and OPIOIDS, which cause nausea and vomiting. FAMILY HISTORY: Her mother is alive with diabetes and osteoporosis. Her father is in his 6 0s from heart disease. Sister has autoimmune disease and gallstones. SOCIAL HISTORY: She is . 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 She denies any history of toba account executive software sales use. She drinks 2 glasses of wine per week. She denies illicit drugs. REVIEW OF SYSTEMS: A 14-point review of systems is completed, otherwise unremarkable as per above. PHYSICAL EXAM: Temperature 98.7, pulse 94, blood pressure 108/72, respirations 18. In general, she i s a well-developed, well-nourished female, appears to be in no apparent distress. She is awake, aler t, and conversive. Her sclerae are anicteric. Her oral mucosa is slightly dry. Lungs were clear to auscultation with normal respiratory effort. Heart has regular rate and rhythm without murmurs, rub s, or gallops. Her abdomen is soft and only slightly distended. She has well- healed upper abdomina l laparoscopic incision. There is a Booker-Washington drain in place with some small amount of clear willa e in the bulb. She has a very mild tenderness in the right upper quadrant. There is no generalized peritonitis, rebound tenderness or rigidity noted. Psychiatric: She is awake, alert, and oriented x 3. She has normal judgment and insight. IMPRESSION: 1. Right upper quadrant fluid collection, most likely an abscess, status post laparoscopic cholecyst ectomy 2 weeks ago for acute gangrenous cholecystitis. She has had a persistent bile leak with a French kson-Washington drain in place. She completed an antibiotic course on and developed a fever of 1 02 with fatigue and presented to the emergency room. 2. Other medical problems as above. I reviewed the findings on the CT scan and the clinical history with her. She has fluid collection/a bscess, which needs to be percutaneously drained and she will most likely require an ERCP for biliary stent placement in light of the prolonged bile leak. I am concerned about a white count of 20,000 as well as the lactic acid elevation and hyperglycemia. She has criteria to meet sepsis and will need to be admitted and started on IV antibiotics. Further investigation here shows that we will most likely be able to have an interventional radiologi st available to drain the collection, I am not certain about the Gastroenterology coverage next week for consideration of an ERCP, but there is no GI coverage this weekend for this procedure. I had further discussion with the patient, I recommend that we transfer her to a higher level of care . I discussed her care with Dr. Cope, the on-call general surgeon at the [facility] in [place] an d he will accept her in transfer for the further workup and treatment. She gives consent to this and is comfortable with our treatment of care. This will be arranged through the transfer center and she will be able to be transferred as a direct admission to the Surgical Service in [place]. [id number]/[facility] #: [id number]
--- NOTE | 2018-12-30 06:00 | PN ---
Progress Note - Progress Note Date of Service: 12/29/18 Note: Pt. transferred yesterday to [facility] for ongoing biliary leak and abd. abscess s/p cholecystectomy. Preliminary aerobic blood culture growing gram negative bacilli. Pt. received IV antibx in ED and will be anticipating surgery at [place] for abscess drainage. Will fax over final culture and sensitivity when it is available. No change in treatment at this time.
== END 2018-12-29 12:41 | disposition short-term general hospital (02) ==
LOC: ED 07:57
DX: R19.01 Right upper quadrant abdominal swelling, mass and lump (principal); Z98.890 Other specified postprocedural states; Z85.3 Personal history of malignant neoplasm of breast; E03.9 Hypothyroidism, unspecified; J30.2 Other seasonal allergic rhinitis; K76.89 Other specified diseases of liver; R73.9 Hyperglycemia, unspecified; R74.0 Nonspecific elevation of levels of transaminase and lactic acid dehydrogenase [LDH]
CPT/HCPCS: 36415; 71046; 74177; 80053; 81003; 83605; 83690; 85025; 86140; 87040; 87077; 87186; 96360; 96361; 99284; J2543; Q9967